=== PATIENT | female | born 1935 | race Caucasian/White ===

== ENCOUNTER 2022-08-27 17:10 | Inpatient (IN) | payer MEDICARE, OTHER ==
[2022-08-27 18:23] LABS: #Eosinphils 0.1 thou/uL (0.0-0.7); #Monocytes 0.7 thou/uL (0.11-0.59); #Neutrophils 4.6 thou/uL (1.40-6.50); %Basophils 0.6 % (0.0-1.0); %Eosinophils 2.1 % (0.0-10.0); %Lymphocytes 14.4 % (21.0-51.0); %Monocytes 10.3 % (0.0-10.0); %Neutrophils 72.3 % (42.0-75.0); Hemoglobin 11.2 g/dL (12.0-16.0); Mean Corpuscular Hemoglobin 31.5 pg (27.0-31.0); Mean Corpuscular Volume 98.3 fl (78.0-98.0); Mean Platelet Volume 9.5 fL (7.4-10.4); Platelet Count 160 10x3/uL (130-400); RBC Distribution Width 16.5 % (11.5-14.5); Red Blood Cell (RBC) Count 3.56 mill/uL (4.20-5.40); White Blood Cell (WBC) Count 6.3 10x3/uL (4.8-10.8)
[2022-08-27 18:49] LABS: ALT (SGPT) 17 U/L (8-55); AST (SGOT) 25 U/L (5-34); Albumin 3.7 g/dL (3.4-4.8); Alkaline Phosphatase 99 U/L (40-110); Anion Gap 12 mmol/L (10-20); BUN (Urea Nitrogen) 21 mg/dL (9.8-20.1); Bilirubin, Total 0.7 mg/dL (0.2-1.2); Calc. Creatinine Clearance 0 mL/min (70-130); Calcium 8.8 mg/dL (7.8-10.44); Carbon Dioxide 26 mmol/L (23-31); Chloride 105 mmol/L (98-107); Estimated GFR 50; Globulin 2.9 g/dL (2.4-3.5); Glucose 109 mg/dL (83-110); Potassium 4.6 mmol/L (3.5-5.1); Protein, Total 6.6 g/dL (5.8-8.1); Sodium 138 mmol/L (136-145)
[2022-08-27] MEDS ORDERED: Morphine 4 MG/ML VIAL ONE (19:38)
[2022-08-27] MEDS ORDERED: Ondansetron PF 4 MG/2 ML Vial IVP PRN (20:14)
[2022-08-27] MEDS ORDERED: Ipratropium/Albuterol 3 ML NEB NEB PRN (20:14)
[2022-08-27] MEDS ORDERED: Morphine 4 MG/ML VIAL SLOW IVP PRN (20:14)
[2022-08-27] MEDS ORDERED: Morphine 2 MG/ML VIAL SLOW IVP PRN (20:14)
[2022-08-27 20:49] LABS: INR-International Normal Ratio 1.7; PTT 35.3 sec (22.9-36.1)
[2022-08-27 21:37] VITALS: BMI 29.7
[2022-08-27] MEDS: Senokot S 8.6-50 MG TAB PO SCH (21:46)
[2022-08-27] MEDS: Acetaminophen 500 MG TAB PO SCH (21:46)
[2022-08-27] MEDS ORDERED: Gabapentin 300 MG CAP PO PRN (22:30)
[2022-08-27 22:49] LABS: Bacteria/HPF None Seen HPF (None Seen); Bilirubin Negative (Negative); Blood, Urine Negative (Negative); CAUTI Indications for Culture Alt mental st,lethar; Clarity Clear (Clear); Glucose, Urine (Dipstick) Normal (Negative); Ketone, Urine Negative (Negative); Leukocyte Negative Leu/uL (Negative); Nitrite Negative (Negative); Protein, Urine (Dipstick) Negative (Neg-Trace); RBC/HPF None Seen HPF (0-3); Specific Gravity, Urine 1.012 (1.002-1.036); Squamous Epithelial None Seen HPF (0-3); Urobilinogen Normal mg/dL (Less than 2); WBC/HPF 0-3 HPF (0-3); pH, Urine 6.5 (5.0-9.0)
[2022-08-27 22:52] LABS: Urine Culture Reflex No No
[2022-08-28] MEDS: Acetaminophen 500 MG TAB PO SCH ×4 (04:00→22:31)
[2022-08-28 06:04] LABS: #Monocytes 0.7 thou/uL (0.11-0.59); %Basophils 0.4 % (0.0-1.0); %Eosinophils 0.3 % (0.0-10.0); %Lymphocytes 14.4 % (21.0-51.0); %Monocytes 9.3 % (0.0-10.0); %Neutrophils 75.2 % (42.0-75.0); Hemoglobin 9.6 g/dL (12.0-16.0); Mean Corpuscular HGB CONC 31.4 g/dL (32.0-36.0); Mean Corpuscular Hemoglobin 31.4 pg (27.0-31.0); Mean Platelet Volume 9.7 fL (7.4-10.4); Platelet Count 167 10x3/uL (130-400); RBC Distribution Width 16.7 % (11.5-14.5); Red Blood Cell (RBC) Count 3.06 mill/uL (4.20-5.40)
[2022-08-28 06:15] LABS: INR-International Normal Ratio 1.7; PTT 38.2 sec (22.9-36.1); Prothrombin Time 20.9 sec (12.0-14.7)
[2022-08-28 06:26] LABS: Anion Gap 14 mmol/L (10-20); BUN (Urea Nitrogen) 22 mg/dL (9.8-20.1); Calc. Creatinine Clearance 52 mL/min (70-130); Calcium 8.4 mg/dL (7.8-10.44); Carbon Dioxide 23 mmol/L (23-31); Chloride 107 mmol/L (98-107); Estimated GFR 55; Glucose 168 mg/dL (83-110); Phosphorus 3.9 mg/dL (2.3-4.7); Potassium 4.5 mmol/L (3.5-5.1); Sodium 139 mmol/L (136-145)
[2022-08-28] MEDS ORDERED: Phytonadione 5 MG TAB PO SCH (08:30)
[2022-08-28] MEDS ORDERED: Atenolol 50 MG TAB PO SCH (09:00)
[2022-08-28] MEDS: Famotidine 20 MG TAB PO SCH (11:08)
[2022-08-28] MEDS: Cephalexin 250 MG CAP PO SCH (11:08)
[2022-08-28] MEDS: Atorvastatin Calcium 20 MG TAB PO SCH (11:09)
[2022-08-28] MEDS: Polyethylene Glycol 3350 17 GM Packet PO SCH (11:10)
[2022-08-28] MEDS: Senokot S 8.6-50 MG TAB PO SCH ×2 (11:10→22:30)
[2022-08-28] MEDS: Donepezil HCl 5 MG TAB PO SCH (22:31)
[2022-08-29] MEDS: Acetaminophen 500 MG TAB PO SCH ×4 (03:20→20:21)
[2022-08-29] MEDS ORDERED: Dexmedetomidine 200 MCG/2 ML VIAL ONE (07:35)
[2022-08-29] MEDS ORDERED: Ketamine 50 MG/ML (10ML VIAL) ONE (07:35)
[2022-08-29] MEDS ORDERED: fentaNYL PF 100 MCG/2 ML SYRINGE ONE (07:35)
[2022-08-29] MEDS ORDERED: SUGAMMADEX SODIUM 200 MG/2 ML VIAL ONE (07:35)
[2022-08-29] MEDS ORDERED: Sodium Chloride 0.9% 100 ML ONE (07:46)
[2022-08-29] MEDS ORDERED: CEFAZOLIN 2 GM VIAL ONE (07:46)
[2022-08-29] MEDS ORDERED: CEFAZOLIN 2 GM in Sodium Chloride 0.9% 100 ML IVPB SCH (08:00)
[2022-08-29] MEDS ORDERED: Dexamethasone 20 MG/5 ML VIAL ONE (08:05)
[2022-08-29] MEDS ORDERED: Ondansetron PF 4 MG/2 ML Vial ONE (08:05)
[2022-08-29] MEDS ORDERED: PROPOFOL 200 MG/20 ML VIAL ONE (08:05)
[2022-08-29] MEDS ORDERED: Lidocaine 1% PF 5 ML VIAL ONE (08:05)
[2022-08-29] MEDS ORDERED: HYDROmorphone 2 MG/ML VIAL SLOW IVP PRN (08:28)
[2022-08-29] MEDS ORDERED: Morphine Sulfate 2 MG/ML SYRINGE SLOW IVP PRN (08:28)
[2022-08-29] MEDS ORDERED: Ondansetron HCl/PF 4 MG/2 ML Vial IVP PRN (08:28)
[2022-08-29] MEDS ORDERED: Promethazine HCl 25 MG/ML VIAL IM PRN (08:28)
[2022-08-29] MEDS ORDERED: PACU-Morphine 4MG/ML VIAL SLOW IVP PRN (08:28)
[2022-08-29] MEDS ORDERED: MINERAL OIL/WHITE PETROLATUM 3.5 GM TUBE ONE (09:18)
[2022-08-29] MEDS: CEFAZOLIN 2 GM in Sodium Chloride 0.9% 100 ML IVPB SCH ×2 (12:09→23:30)
[2022-08-29] MEDS: Atenolol 25 MG TAB PO SCH (12:14)
[2022-08-29] MEDS: Senokot S 8.6-50 MG TAB PO SCH ×2 (12:14→20:21)
[2022-08-29] MEDS: Atorvastatin Calcium 20 MG TAB PO SCH (12:15)
[2022-08-29] MEDS: Cephalexin 250 MG CAP PO SCH (12:15)
[2022-08-29] MEDS: Famotidine 20 MG TAB PO SCH (12:16)
[2022-08-29] MEDS: Polyethylene Glycol 3350 17 GM Packet PO SCH (12:16)
[2022-08-29 17:34] LABS: #Monocytes 0.5 thou/uL (0.11-0.59); #Neutrophils 10.3 thou/uL (1.40-6.50); %Basophils 0.1 % (0.0-1.0); %Lymphocytes 4.8 % (21.0-51.0); %Monocytes 4.1 % (0.0-10.0); %Neutrophils 90.5 % (42.0-75.0); Hemoglobin 7.4 g/dL (12.0-16.0); Mean Corpuscular HGB CONC 31.1 g/dL (32.0-36.0); Mean Corpuscular Hemoglobin 31.4 pg (27.0-31.0); Mean Corpuscular Volume 100.8 fl (78.0-98.0); Mean Platelet Volume 10.2 fL (7.4-10.4); Platelet Count 149 10x3/uL (130-400); RBC Distribution Width 16.7 % (11.5-14.5); Red Blood Cell (RBC) Count 2.36 mill/uL (4.20-5.40); White Blood Cell (WBC) Count 11.4 10x3/uL (4.8-10.8)
[2022-08-29] MEDS: Donepezil HCl 5 MG TAB PO SCH (20:22)
[2022-08-30] MEDS: Acetaminophen 500 MG TAB PO SCH ×4 (04:03→20:18)
[2022-08-30 05:34] LABS: #Monocytes 0.8 thou/uL (0.11-0.59); %Lymphocytes 11.5 % (21.0-51.0); %Monocytes 7.2 % (0.0-10.0); %Neutrophils 80.8 % (42.0-75.0); Hemoglobin 7.8 g/dL (12.0-16.0); Mean Corpuscular HGB CONC 32.8 g/dL (32.0-36.0); Mean Platelet Volume 10.1 fL (7.4-10.4); Platelet Count 128 10x3/uL (130-400); RBC Distribution Width 16.9 % (11.5-14.5); Red Blood Cell (RBC) Count 2.44 mill/uL (4.20-5.40); White Blood Cell (WBC) Count 11.1 10x3/uL (4.8-10.8)
[2022-08-30 05:44] LABS: Mean Corpuscular Volume 97.5 fl (78.0-98.0)
[2022-08-30 05:46] LABS: INR-International Normal Ratio 1.7; PTT 42.6 sec (22.9-36.1); Prothrombin Time 20.3 sec (12.0-14.7)
[2022-08-30 05:57] LABS: Anion Gap 12 mmol/L (10-20); BUN (Urea Nitrogen) 29 mg/dL (9.8-20.1); Calc. Creatinine Clearance 54 mL/min (70-130); Calcium 7.8 mg/dL (7.8-10.44); Carbon Dioxide 24 mmol/L (23-31); Chloride 108 mmol/L (98-107); Estimated GFR 57; Glucose 140 mg/dL (83-110); Phosphorus 3.7 mg/dL (2.3-4.7); Potassium 4.6 mmol/L (3.5-5.1); Sodium 139 mmol/L (136-145)
[2022-08-30 06:06] LABS: Magnesium 1.9 mg/dL (1.6-2.6)
[2022-08-30] MEDS: CEFAZOLIN 2 GM in Sodium Chloride 0.9% 100 ML IVPB SCH (06:13)
[2022-08-30] MEDS ORDERED: Ferrous Sulfate 325 MG TAB PO SCH (08:00)
[2022-08-30] MEDS: Polyethylene Glycol 3350 17 GM Packet PO SCH (09:08)
[2022-08-30] MEDS: Cephalexin 250 MG CAP PO SCH (09:09)
[2022-08-30] MEDS: Atorvastatin Calcium 20 MG TAB PO SCH (09:09)
[2022-08-30] MEDS: Senokot S 8.6-50 MG TAB PO SCH ×2 (09:10→20:18)
[2022-08-30] MEDS: Atenolol 25 MG TAB PO SCH (09:11)
[2022-08-30] MEDS: Ferrous Sulfate 325 MG TAB PO SCH ×2 (09:14→20:18)
[2022-08-30] MEDS: Ascorbic Acid 500 mg Chewable Tablet PO SCH ×2 (09:14→20:15)
[2022-08-30] MEDS: traMADol HCl 50 MG TAB PO PRN (11:25)
[2022-08-30] MEDS: Donepezil HCl 5 MG TAB PO SCH (20:18)
[2022-08-31] MEDS: Acetaminophen 500 MG TAB PO SCH ×4 (03:10→20:55)
[2022-08-31 07:00] LABS: #Eosinphils 0.1 thou/uL (0.0-0.7); #Monocytes 0.8 thou/uL (0.11-0.59); %Basophils 0.4 % (0.0-1.0); %Eosinophils 0.7 % (0.0-10.0); %Lymphocytes 25.4 % (21.0-51.0); %Neutrophils 65.8 % (42.0-75.0); Mean Corpuscular HGB CONC 31.7 g/dL (32.0-36.0); Mean Corpuscular Hemoglobin 31.1 pg (27.0-31.0); Mean Corpuscular Volume 98.2 fl (78.0-98.0); Mean Platelet Volume 10.2 fL (7.4-10.4); Platelet Count 132 10x3/uL (130-400); Red Blood Cell (RBC) Count 2.25 mill/uL (4.20-5.40); White Blood Cell (WBC) Count 10.7 10x3/uL (4.8-10.8)
[2022-08-31] MEDS: Polyethylene Glycol 3350 17 GM Packet PO SCH (09:22)
[2022-08-31] MEDS: Senokot S 8.6-50 MG TAB PO SCH ×2 (09:23→20:56)
[2022-08-31] MEDS: Ascorbic Acid 500 mg Chewable Tablet PO SCH ×2 (09:23→20:55)
[2022-08-31] MEDS: Atorvastatin Calcium 20 MG TAB PO SCH (09:24)
[2022-08-31] MEDS: Ferrous Sulfate 325 MG TAB PO SCH ×2 (09:24→20:55)
[2022-08-31] MEDS: Cephalexin 250 MG CAP PO SCH (09:24)
[2022-08-31] MEDS: Atenolol 25 MG TAB PO SCH (09:24)
[2022-08-31] MEDS: traMADol HCl 50 MG TAB PO PRN (15:46)
[2022-08-31] MEDS: Cyclobenzaprine 10 MG TAB PO PRN (15:48)
[2022-08-31] MEDS: Donepezil HCl 5 MG TAB PO SCH (20:55)
[2022-08-31] MEDS: Sertraline 25 MG TAB PO SCH (20:55)
[2022-09-01] MEDS: Acetaminophen 500 MG TAB PO SCH ×4 (04:05→21:14)
[2022-09-01 05:32] LABS: #Basophils 0.1 thou/uL (0.0-0.2); #Eosinphils 0.2 thou/uL (0.0-0.7); #Monocytes 0.9 thou/uL (0.11-0.59); %Basophils 0.5 % (0.0-1.0); %Eosinophils 2.3 % (0.0-10.0); %Monocytes 8.7 % (0.0-10.0); %Neutrophils 58.1 % (42.0-75.0); Hemoglobin 7.9 g/dL (12.0-16.0); Mean Corpuscular HGB CONC 31.5 g/dL (32.0-36.0); Mean Corpuscular Volume 98.4 fl (78.0-98.0); Mean Platelet Volume 10.2 fL (7.4-10.4); Platelet Count 151 10x3/uL (130-400); RBC Distribution Width 18.7 % (11.5-14.5); Red Blood Cell (RBC) Count 2.55 mill/uL (4.20-5.40); White Blood Cell (WBC) Count 10.3 10x3/uL (4.8-10.8)
[2022-09-01 05:53] LABS: Anion Gap 14 mmol/L (10-20); BUN (Urea Nitrogen) 36 mg/dL (9.8-20.1); Calc. Creatinine Clearance 55 mL/min (70-130); Calcium 8.2 mg/dL (7.8-10.44); Carbon Dioxide 20 mmol/L (23-31); Chloride 108 mmol/L (98-107); Estimated GFR 59; Glucose 128 mg/dL (83-110); Potassium 4.3 mmol/L (3.5-5.1); Sodium 138 mmol/L (136-145)
[2022-09-01] MEDS: Polyethylene Glycol 3350 17 GM Packet PO SCH (09:59)
[2022-09-01] MEDS: Senokot S 8.6-50 MG TAB PO SCH ×2 (09:59→21:15)
[2022-09-01] MEDS: Atenolol 25 MG TAB PO SCH (09:59)
[2022-09-01] MEDS: Cephalexin 250 MG CAP PO SCH (09:59)
[2022-09-01] MEDS: Cyclobenzaprine 10 MG TAB PO PRN (10:00)
[2022-09-01] MEDS: Atorvastatin Calcium 20 MG TAB PO SCH (10:00)
[2022-09-01] MEDS: Ascorbic Acid 500 mg Chewable Tablet PO SCH ×2 (10:00→21:14)
[2022-09-01] MEDS: Ferrous Sulfate 325 MG TAB PO SCH ×2 (10:00→21:15)
[2022-09-01] MEDS ORDERED: Ketorolac Tromethamine 30 MG/ML VIAL IVP SCH (11:45)
[2022-09-01] MEDS: traMADol HCl 50 MG TAB PO SCH ×2 (11:49→18:59)
[2022-09-01] MEDS ORDERED: Aspirin 81 mg Enteric Coated Tablet PO SCH (13:30)
[2022-09-01] MEDS ORDERED: Warfarin Sodium 2.5 MG TAB PO SCH (17:00)
[2022-09-01] MEDS: Donepezil HCl 5 MG TAB PO SCH (21:15)
[2022-09-01] MEDS: Sertraline 25 MG TAB PO SCH (21:15)
[2022-09-02] MEDS: traMADol HCl 50 MG TAB PO SCH ×2 (01:09→06:04)
[2022-09-02] MEDS: Acetaminophen 500 MG TAB PO SCH ×2 (03:17→08:28)
[2022-09-02 05:51] LABS: INR-International Normal Ratio 1.2; PTT 32.3 sec (22.9-36.1); Prothrombin Time 15.4 sec (12.0-14.7)
[2022-09-02 06:00] LABS: Hemoglobin 8.4 g/dL (12.0-16.0); Mean Corpuscular HGB CONC 31.1 g/dL (32.0-36.0); Mean Corpuscular Volume 99.6 fl (78.0-98.0); Mean Platelet Volume 9.8 fL (7.4-10.4); Platelet Count 176 10x3/uL (130-400); RBC Distribution Width 18.6 % (11.5-14.5); Red Blood Cell (RBC) Count 2.71 mill/uL (4.20-5.40); White Blood Cell (WBC) Count 10.2 10x3/uL (4.8-10.8)
[2022-09-02] MEDS: traMADol HCl 50 MG TAB PO PRN (08:29)
[2022-09-02] MEDS: Atenolol 25 MG TAB PO SCH (08:29)
[2022-09-02] MEDS: Cephalexin 250 MG CAP PO SCH (08:29)
[2022-09-02] MEDS: Ferrous Sulfate 325 MG TAB PO SCH (08:29)
[2022-09-02] MEDS: Ascorbic Acid 500 mg Chewable Tablet PO SCH (08:30)
[2022-09-02] MEDS: Polyethylene Glycol 3350 17 GM Packet PO SCH (08:30)
[2022-09-02] MEDS: Senokot S 8.6-50 MG TAB PO SCH (08:30)
[2022-09-02] MEDS ORDERED: Atorvastatin Calcium 40 MG TAB PO SCH (09:00)
[2022-09-02] MEDS ORDERED: Spironolactone 25 MG TAB PO SCH (09:00)
[2022-09-02 09:20] VITALS: BP 113/69; TEMP 97.9
== END 2022-09-02 10:39 | DRG 481 ==
LOC: ERS 17:10 → SJJU 18:09
PROVIDERS: ADMIT Surgery; ATTEND Surgery
PROC: 0QSB06Z Reposition Right Lower Femur with Intramedullary Internal Fixation Device, Open Approach (ICD-10-PCS; principal; 2022-08-29)
PROC: 30233N1 Transfusion of Nonautologous Red Blood Cells into Peripheral Vein, Percutaneous Approach (ICD-10-PCS; 2022-08-29)
DX: S72.011A Unspecified intracapsular fracture of right femur, initial encounter for closed fracture (principal); D62 Acute posthemorrhagic anemia; M97.01XA Periprosthetic fracture around internal prosthetic right hip joint, initial encounter; I48.91 Unspecified atrial fibrillation; E78.5 Hyperlipidemia, unspecified; F03.90 Unspecified dementia, unspecified severity, without behavioral disturbance, psychotic disturbance, mood disturbance, and anxiety; I50.9 Heart failure, unspecified; W19.XXXA Unspecified fall, initial encounter; K21.9 Gastro-esophageal reflux disease without esophagitis; Z96.653 Presence of artificial knee joint, bilateral; E66.9 Obesity, unspecified; I25.10 Atherosclerotic heart disease of native coronary artery without angina pectoris; I44.7 Left bundle-branch block, unspecified; R33.9 Retention of urine, unspecified; Z86.73 Personal history of transient ischemic attack (TIA), and cerebral infarction without residual deficits; I25.2 Old myocardial infarction; Z98.890 Other specified postprocedural states; Z90.49 Acquired absence of other specified parts of digestive tract; Z95.5 Presence of coronary angioplasty implant and graft; Y92.009 Unspecified place in unspecified non-institutional (private) residence as the place of occurrence of the external cause; Z68.29 Body mass index [BMI] 29.0-29.9, adult
CPT/HCPCS: 36415; 36430; 51702; 70450; 71045; 72170; 80048; 80053; 81001; 82533; 83735; 83880; 84100; 84484; 85025; 85027; 85610; 85652; 85730; 86140; 86850; 86900; 86901; 93005; 93306; 93970; 96374; C1713; G0390; J1100; J1650; J1885; J2270; J2272; J2405; J2704; J3490; P9016